=== PATIENT | female | born 1980 | race Two or more races ===

== ENCOUNTER 2019-09-12 10:42 | Emergency (ER) | payer MEDICAID ==
[~2019-09-12] VITALS: Ht 157.5 cm; Wt 57.0 kg
--- NOTE | 2019-09-12 10:58 | NUR ---
pt to ed for possible tampon stuck in vagina. pt states it may have been there for approx 1-2 weeks. pt endorses blq abd since yesterday. pt connected to monitors. mike Greenwood to bs for assessment. plan for pelvic exam, labs and ua sample. awaiting further orders.
--- NOTE | 2019-09-12 11:14 | NUR ---
pt resting in room. tachy, vss. pt appears very anxious with increased rr. pt up self with steady gait to rr to provide urine. ua collected and sent. labor and employment paralegal at bs to draw. pelvic bed an staple fiber washer cart ready for exam.
[2019-09-12 11:15] LABS: BASOPHILS # (AUTO) 0.04 x10^3/uL (0-0.1); BASOPHILS % (AUTO) 1 % (0-1); EOSINOPHILS # (AUTO) 0.14 x10^3/uL (0-0.4); EOSINOPHILS % (AUTO) 2 % (1-7); LYMPHOCYTES % (AUTO) 20 % (22-44); MD NO; MEAN CORPUSCULAR HEMOGLOBIN 33.2 pg (27.0-34.8); MEAN CORPUSCULAR HGB CONC 33.9 g/dL (32.4-35.8); MEAN CORPUSCULAR VOLUME 97.8 fL (80-100); MEAN PLATELET VOLUME 7.7 fL (7.4-10.4); MONOCYTES # (AUTO) 0.35 x10^3/uL (0.2-0.8); MONOCYTES % (AUTO) 6 % (2-9); NEUTROPHILS # (AUTO) 4.16 x10^3/uL (1.8-6.8); NEUTROPHILS % (AUTO) 71 % (42-75); PLATELET COUNT 375 x10^3/uL (130-400); RED BLOOD COUNT 4.81 x10^6/uL (3.82-5.3); RED CELL DISTRIBUTION WIDTH 12.9 % (9.6-15.2)
[2019-09-12 11:25] LABS: ALBUMIN 4.2 g/dL (3.4-5.0); ANION GAP 6 mmol/L (5-15); CALCIUM 9.3 mg/dL (8.5-10.1); CHLORIDE 103 mmol/L (98-107); CREATININE 0.79 mg/dL (0.55-1.02)
[2019-09-12 11:34] LABS: HCG UR SG 1.026 (1.003-1.030)
--- NOTE | 2019-09-12 11:36 | NUR ---
pelvic exam completed by lorelei boyer and MILLER Hart, with this RN as news department intern. Addendum: 09/12/19 at 1141 by [email or web address] no fb identified during exam.
[2019-09-12 11:38] LABS: CULTURE INDICATED? YES; MICROSCOPIC INDICATED
--- NOTE | 2019-09-12 11:41 | NUR ---
new order for transvaginal us received at this time.
--- NOTE | 2019-09-12 12:08 | NUR ---
pt resting in room. vss. no needs expresed. call light within reach. awaiting lab results and us.
--- NOTE | 2019-09-12 12:17 | NUR ---
pt to us.
[2019-09-12 12:36] LABS: CLUE CELLS NONE SEEN (NONE SEEN); WET PREP WBCS FEW (FEW)
[2019-09-12 12:50] VITALS: BP 108/75
--- NOTE | 2019-09-12 12:51 | NUR ---
pt resting in room. vss. water and crackers provided after ok from MILLER Hart. no other needs expressed. call light within reach. awaiting us results.
--- NOTE | 2019-09-12 13:02 | NUR ---
REPORT RECEIVED FROM BECKY VIEIRA, ASSUMING CARE OF PT AT THIS TIME. ALL RESULTS BACK AT THIS TIME, CHART UP FOR RECHECK
== END 2019-09-12 13:38 | disposition home or self-care (01) ==
LOC: ED 13:27
DX: N30.00 Acute cystitis without hematuria (principal); N83.291 Other ovarian cyst, right side
CPT/HCPCS: 36415; 76830; 80048; 81001; 81025; 82040; 85025; 87077; 87086; 87186; 87210; 87491; 87591; 87808; 99284